=== PATIENT | female | born 1935 | race Caucasian/White ===

== ENCOUNTER 2017-06-01 20:08 | Inpatient (IN) | payer SELFPAY ==
[~2017-06-01] VITALS: Ht 139.7 cm; Wt 55.5 kg
[2017-06-01 20:54] LABS: BASOPHIL % 0.3 % (0-2); PLATELET COUNT 214 x10^3mcL (130-400); RED CELL DISTRIBUTION WIDTH 13.8 % (11.5-14.5)
[2017-06-01 21:03] LABS: CARBON DIOXIDE 28.6 mmol/L (21-32); CHLORIDE SERUM 104 mmol/L (98-107); CREATININE SERUM 0.6 mg/dL (0.6-1.0); GLUCOSE SERUM 171 mg/dL (74-106); POTASSIUM SERUM 3.8 mmol/L (3.5-5.1); SODIUM SERUM 141 mmol/L (136-145)
[2017-06-01 21:08] LABS: ALBUMIN 3.6 g/dL (3.4-5.0); ALKALINE PHOSPHATASE 159 U/L (46-116); ALT/SGPT 47 U/L (14-59); AST/SGOT 24 U/L (15-37); BILIRUBIN TOTAL 0.29 mg/dL (0.20-1.00); TOTAL PROTEIN, SERUM 7.6 g/dL (6.4-8.2)
[2017-06-02] MEDS ORDERED: CLOPIDOGREL75 M1 PO (01:30)
[2017-06-02] MEDS ORDERED: SINGULAIR10 MG PO (01:30)
[2017-06-02] MEDS ORDERED: NOR5 PO (01:31)
[2017-06-02] MEDS ORDERED: D25 PO (01:32)
[2017-06-02] MEDS ORDERED: PULMICORT0.25 MG/2 NEB (01:33)
[2017-06-02] MEDS ORDERED: MILLIPRED10 MG/5 ML PO (01:33)
[2017-06-02 01:38] LABS: CHOLESTEROL/HDL RATIO 3.4; PHOSPHOROUS 2.7 mg/dL (2.5-4.9)
[2017-06-02 01:46] LABS: FREE T4 0.97 ng/dL (0.76-1.46); FREE THYROXINE INDEX 2.7 ug/dL (1.4-4.5); T4(THYROXINE) 9.1 ug/dL (4.7-13.3)
[2017-06-02 01:46] LABS: microscopic required? NO
[2017-06-02 01:47] LABS: T3 TOTAL 1.06 ng/mL
[2017-06-02 02:14] LABS: UA SPECIFIC GRAVITY <=1.005 (1.005-1.035); urine erythrocyte NEGATIVE (NEGATIVE)
[2017-06-02 04:21] VITALS: BP 150/68
[2017-06-02 06:25] VITALS: BP 117/54
[2017-06-02 06:36] LABS: BASOPHIL % 0.2 % (0-2); PLATELET COUNT 202 x10^3mcL (130-400); RED CELL DISTRIBUTION WIDTH 13.9 % (11.5-14.5)
[2017-06-02 08:57] LABS: CALCIUM 9.2 mg/dL (8.5-10.1); CARBON DIOXIDE 28.9 mmol/L (21-32); CHLORIDE SERUM 105 mmol/L (98-107); CREATININE SERUM 0.5 mg/dL (0.6-1.0); GLUCOSE SERUM 125 mg/dL (74-106); POTASSIUM SERUM 3.8 mmol/L (3.5-5.1); SODIUM SERUM 141 mmol/L (136-145)
[2017-06-02 09:40] VITALS: BP 128/59
[2017-06-02 13:15] VITALS: BP 113/55
[2017-06-02 15:29] VITALS: BP 113/55
== END 2017-06-02 16:08 | disposition home or self-care (01) | DRG 73 ==
LOC: ED 20:08 → DU 06-02 00:51
PROVIDERS: Emergency Medicine; Family Medicine
DX: G51.0 Bell's palsy (principal); N17.0 Acute kidney failure with tubular necrosis; I24.9 Acute ischemic heart disease, unspecified; I10 Essential (primary) hypertension; E78.5 Hyperlipidemia, unspecified; R91.1 Solitary pulmonary nodule; E66.3 Overweight; Z68.28 Body mass index [BMI] 28.0-28.9, adult; Z90.49 Acquired absence of other specified parts of digestive tract
CPT/HCPCS: 83880; 84439; J1644; J7030; Q9967